=== PATIENT | male | born 1965 | race African-American/Black ===

== ENCOUNTER 2017-06-12 12:19 | Emergency (ER) | payer SELFPAY ==
[~2017-06-12] VITALS: Ht 188 cm; Wt 90.0 kg
[2017-06-12 15:05] VITALS: BP 169/91
== END 2017-06-12 15:26 | disposition home or self-care (01) ==
LOC: ED 13:52
DX: T56.91XA Toxic effect of unspecified metal, accidental (unintentional), initial encounter (principal); F15.129 Other stimulant abuse with intoxication, unspecified; G89.29 Other chronic pain; J45.909 Unspecified asthma, uncomplicated; I10 Essential (primary) hypertension; Y92.9 Unspecified place or not applicable
CPT/HCPCS: 71010; 93005; 99284

== ENCOUNTER 2017-06-12 21:41 | Emergency (ER) | payer SELFPAY ==
[~2017-06-12] VITALS: Ht 180.3 cm; Wt 175.0 kg
[2017-06-12] MEDS ORDERED: NALOXONE 0.4 MG/ML, 1ML IVPush PRN (22:30)
[2017-06-12 22:44] LABS: ASPARTATE AMINO TRANSFERASE 100 U/L (15-37); BLOOD UREA NITROGEN 18 mg/dL (7-18)
[2017-06-12 22:46] LABS: ACETAMINOPHEN < 2 mcg/mL (10-30)
[2017-06-12 23:04] LABS: IS PT STATUS REG ER OR PRE ER? YES
[2017-06-12] MEDS ORDERED: ASPIRIN 81 MG TABLET CHEW ONE (23:47)
[2017-06-13] MEDS ORDERED: ASPIRIN 81 MG TABLET CHEW PO ONE
[2017-06-13 02:25] VITALS: BP 138/91
== END 2017-06-13 02:29 | disposition home or self-care (01) ==
LOC: ED 22:05
DX: F15.10 Other stimulant abuse, uncomplicated (principal); I10 Essential (primary) hypertension; F11.10 Opioid abuse, uncomplicated
CPT/HCPCS: 36415; 70450; 71010; 80053; 80307; 80329; 84484; 85025; 93005; 99285; G0480

== ENCOUNTER 2017-06-15 09:54 | Emergency (ER) | payer SELFPAY ==
[~2017-06-15] VITALS: Ht 188 cm; Wt 91.0 kg
[2017-06-15] MEDS ORDERED: SODIUM CHLORIDE 0.9% 1,000 ML IV ONE (10:12)
[2017-06-15] MEDS ORDERED: DIPHENHYDRAMINE 50 MG/ML, 1ML ONE (10:32)
[2017-06-15 10:45] LABS: ASPARTATE AMINO TRANSFERASE 67 U/L (15-37); BLOOD UREA NITROGEN 15 mg/dL (7-18)
[2017-06-15] MEDS ORDERED: DIPHENHYDRAMINE 50 MG/ML, 1ML IVPush ONE (11:00)
[2017-06-15 11:46] LABS: DAU SCREEN DISCLAIMER
[2017-06-15 13:10] VITALS: BP 152/92
== END 2017-06-15 13:14 | disposition home or self-care (01) ==
LOC: ED 11:35
DX: G24.09 Other drug induced dystonia (principal); I10 Essential (primary) hypertension; G89.29 Other chronic pain
CPT/HCPCS: 36415; 70551; 71010; 80053; 80307; 85025; 85610; 93005; 93880; 96361; 96374; 99291; J1200; J7030